=== PATIENT | male | born 1970 | race Caucasian/White ===

== ENCOUNTER 2019-04-19 21:51 | Emergency (ER) | payer OTHER ==
[~2019-04-19] VITALS: Ht 182.9 cm; Wt 176.9 kg
[2019-04-19 21:55] VITALS: BP 146/82
--- NOTE | 2019-04-19 22:21 | ER.PDOC ---
General Chief Complaint: Requesting Medical Care Stated Complaint: OBJECT IN THROAT TRAVEL OUT OF US: No Time seen by MD: 22:19 Source: patient Exam Limitations: no limitations History of Present Illness Initial Comments Object stuck in right side of neck after drinking water. Timing/Duration: 1-3 hours Associated Symptoms: denies symptoms Allergies: Coded Allergies: No Known Allergies (Unverified , 04/19/19) Review of Systems Constitutional: no symptoms reported EENTM: see HPI Respiratory: no symptoms reported Cardiovascular: no symptoms reported Gastrointestinal: no symptoms reported All Other Systems: Reviewed and Negative Physical Exam General Appearance: No Apparent Distress, WD/WN Neck: Non-Tender, Full Range of Motion, Supple, Normal Inspection Respiratory: chest non-tender, lungs clear, normal breath sounds, no respiratory distress CVS: reg rate & rhythm, no murmur, no gallop, pulses nml, nml capillary refill Gastrointestinal: Normal Bowel Sounds, No Organomegaly, No Pulsatile Mass, Non Tender Back: Normal Inspection Extremities: Normal Range of Motion 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 I wanted to transfer him to [place] but he refused stating that if it still bothers him tomorrow then he will go. Course Vitals & review Data Vital Sign - Last 24 Hours 04/19/19 04/19/19 04/19/19 21:55 21:55 21:55 Temp 98.9 98.9 98.9 Pulse 107 107 107 Resp 20 20 20 B/P (MAP) 146/82 (103) Pulse Ox 95 95 O2 Delivery Room Air Room Air Departure Time of Disposition: 22:43 Disposition: 01 HOME, SELF-CARE Impression: Primary Impression: Foreign body (FB) in soft tissue Condition: Stable Referrals: PCP,UNKNOWN (PCP) PRIMARY CARE PROVIDER Additional Instructions: Go to either [facility] [place] or [facility] as needed. Duration or Time Spent with Pa: 30 mins SVITLANA JAUREGUI MD Apr 19, 2019 22:21
--- NOTE | 2019-04-19 22:38 | NUR ---
CT Patient back from CT
--- NOTE | 2019-04-19 22:39 | NUR ---
Update Patient could not be scanned due to weight
--- NOTE | 2019-04-19 22:50 | NUR ---
IV Patient removed IV. IV is laying on the bedside table with the tip intact.
[2019-04-19 22:52] VITALS: BP 146/82
== END 2019-04-19 22:53 | disposition home or self-care (01) ==
LOC: ER 21:51
DX: M79.5 Residual foreign body in soft tissue (principal)
CPT/HCPCS: 99284